=== PATIENT | male | born 1975 | race Caucasian/White ===

== ENCOUNTER 2020-12-02 10:00 | Emergency (ER) | payer OTHER, SELFPAY ==
[2020-12-02 10:00] VITALS: BP 148/95; PULSE 62; RESP 18; TEMP 36.1; O2SAT 99; BMI 33.0
--- NOTE | 2020-12-02 10:17 | CT_ITS ---
STUDY: CT ABDOMEN AND PELVIS WITHOUT CONTRAST REASON FOR EXAM: Male, 45 years old. Right-sided pain. History of kidney stones. RADIATION DOSAGE (If Supplied By Facility): CTDIvol = ( 11.06 ) mGy, DLP = ( 616.07 ) mGycm TECHNIQUE: Transaxial images were obtained from the dome of the diaphragm to the symphysis pubis without oral contrast, and without intravenous contrast. Sagittal and coronal images were reconstructed. Individualized dose optimization techniques were used for this CT. COMPARISON: None. FINDINGS: Evaluation of the abdominal viscera is limited in the absence of intravenous contrast. The visualized lung bases are clear. The visualized portions of the heart and pericardium are within normal limits. There are no calcified gallstones present. The liver demonstrates an unremarkable unenhanced appearance. The spleen is normal in size. The pancreas demonstrates an unremarkable unenhanced appearance. The adrenal glands are within normal limits. There is a 5 mm stone in the right mid ureter with mild right hydronephrosis. There are bilateral subcentimeter nonobstructing renal collecting system stones, measuring up to 4 mm. There are no left ureteral stones. There is no hydronephrosis. Normal visualized stomach. There is no bowel obstruction or inflammation. The appendix is visualized and appears normal. The aorta is normal in caliber. There is no abdominal or pelvic free air, free fluid, fluid collection or lymphadenopathy. There are no destructive osseous lesions. CT/Abdomen/Pelvis without Cont IMPRESSION: 5 mm stone in the right mid ureter with mild right hydroureteronephrosis. Bilateral subcentimeter nonobstructing renal collecting system stones. No left ureteral stones. No left hydronephrosis. No bowel obstruction or inflammation. Normal appendix. Electronically Signed: Seth Pringle MD at 11:29 EDT Tel , Service support ,
--- NOTE | 2020-12-02 10:19 | ED.VIS.GEN ---
History of Present Illness Chief Complaint: Flank Pain Informant: Patient Onset: Today Context: Sudden Onset Current Severity: Severe Maximum Severity: Severe Narrative: Patient presents with severe right flank pain with rather sudden onset 1 hour prior to arrival. Patient does have a history of kidney stones and states this does feel similar. He tried taking naproxen and hydrocodone at home but has had no relief in pain. He believes he has noted some blood in his urine recently. He has had kidney stones in the past but is always been able to pass them. He has had nausea and vomiting today secondary to pain. - Past Medical History (1) Kidney stones Status: Chronic Past Medical History Primary Care Physician: [facility],[place] [Primary Care Provider] - Prior records reviewed: Yes Lives: Spouse/ Significant Other Smoking Status: Never smoker Review of Systems General: Denies: Chills, Fever Eyes: Denies: Visual changes - bilaterally ENT: Denies: Bilateral ear pain Cardiovascular: Denies: Chest pain Respiratory: Denies: Dyspnea, Cough Gastrointestinal: Reports: Abdominal pain - Right flank, Nausea, Vomiting Musculoskeletal: Reports: Back pain - Right flank Skin: Denies: Rash Neurological: Denies: Headache Hematologic: Denies: Easy bruising, Easy bleeding Allergy: Denies: Uticaria Physical Exam Vital Signs/Narrative: Vital Signs Temp Pulse Resp BP Pulse Ox 12/02/20 10:00 96.9 F L 62 18 148/95 H 99 Inital Vital Signs reviewed: Yes General: Well nourished, Well developed Head: Normocephalic ENT: Moist mucous membranes Neck: Supple Cardiovascular: Regular rate, Regular rhythm Respiratory: No distress, CTA bilaterally Abdomen: Soft Back: CVA tenderness Neurological: Alert, Oriented x3 Psychological: - - Anxious Diagnostic/Tx/Re-eval Impressions Abdomen/Pelvis CT 12/02/20 10:17 IMPRESSION: 5 mm stone in the right mid ureter with mild right hydroureteronephrosis. Bilateral subcentimeter nonobstructing renal collecting system stones. No left ureteral stones. No left hydronephrosis. No bowel obstruction or inflammation. Normal appendix. Electronically Signed: Seth Pringle MD at 11:29 EDT Tel , Service support , 12/02/20 10:17 Abdomen/Pelvis without Cont [CT] Stat Laboratory Results 12/02/20 12/02/20 12/02/20 10:05 10:05 10:45 WBC 6.8 RBC 5.56 Hgb 16.3 Hct 47.8 MCV 86.0 MCH 29.3 MCHC 34.1 RDW Std Deviation 39.1 RDW Coeff of Giovani 12.4 Plt Count 254 MPV 9.9 Immature Gran % (Auto) 0.100 Neut % (Auto) 67.6 Lymph % (Auto) 23.3 [place] % (Auto) 7.2 Eos % (Auto) 1.2 Baso % (Auto) 0.6 Absolute Neuts (auto) 4.6 Absolute Lymphs (auto) 1.58 Nucleated RBC % 0 Sodium 137 Potassium 4.0 Chloride 106 Carbon Dioxide 23.0 Anion Gap 8 BUN 14 Creatinine 1.12 Estim Creat Clear Calc 87.81 Est GFR (MDRD) Af Amer 92 Est GFR (MDRD) Non-Af 76 BUN/Creatinine Ratio 12.5 Glucose 122 H Calcium 9.3 Urine Color [place] Urine Clarity Cloudy Urine pH 5.0 Ur Specific [place] 1.025 Urine Protein 100 H Urine Glucose (UA) Normal Urine Ketones 5 H Urine Occult Blood 250 H Urine Nitrite Positive H Urine Bilirubin Negative Urine Urobilinogen 1 H Ur Leukocyte Esterase 25 H Urine RBC > 100 SEEN Urine WBC 0-5 SEEN Ur Squamous Epith Cells 0 SEEN Urine Bacteria 0 SEEN Urine Mucus 0 SEEN - Medical Decision Making Patient was given morphine, Zofran, Toradol, and IV fluids. On repeat evaluation patient is resting much more comfortably. Blood work is largely unremarkable. Renal function is normal. Urinalysis does show blood but [address] flank reveals a 5 mm stone in the right mid to proximal ureter. Mild hydronephrosis is noted. Test results discussed with patient and at bedside. He would prefer to try to go home with pain medication if possible. He will be written for Percocet, Toradol, Zofran, and Flomax. He is given return instructions. [facility] and may follow-up with the [place] urologist, however he will also be given Dr. Gunn's information if he is able to follow-up locally. ED Disposition - Plan for ED Patient: Disposition: Home or Assisted Living Diagnosis: Kidney stone on right side Instructions: ED Kidney Stone w/ Colic Prescriptions: Tamsulosin HCl [Flomax] 0.4 mg PO DAILY #7 capsule Transmission Status: Pending to [id number] Oxycodone HCl/Acetaminophen [Percocet 5/325] 1 tablet PO Q6H PRN PRN 3 Days #12 tablet PRN Reason: Pain Transmission Status: Received by [id number] Ketorolac [Toradol] 10 mg PO Q6H PRN #14 tab PRN Reason: Pain Score 4-10 Transmission Status: [facility] [address] Ondansetron [Zofran Odt] 4 mg PO Q8H PRN PRN #10 tablet PRN Reason: Nausea Transmission Status: P[facility] to [facility] [address] Referrals: [facility],[place] [Primary Care Provider] - Naldo Gunn MD [STAFF PHYSICIAN] - 3-5 Days if not improving
[2020-12-02] MEDS: Ketorolac 30 MG/ML Syringe IV (10:27)
[2020-12-02] MEDS: Morphine 4 MG/ML Syringe IV ×2 (10:27→12:14)
[2020-12-02] MEDS: 0.9% Normal Saline 1,000 ML 250 ML IV (10:28)
[2020-12-02] MEDS: Ondansetron 4 MG/2 ML Vial IV (10:28)
[2020-12-02 10:53] LABS: Bacteria 0 SEEN /hpf (None Seen); Mucous, Urine 0 SEEN /hpf (<or=2+); Squamous Epithelial Cells - UA 0 SEEN /hpf (0-5)
[2020-12-02 10:56] LABS: Color, Urine Amber (Yellow); Glucose, Dipstick Normal (Normal); Ketone-Dipstick 5 mg/dl (Negative); Leukocyte Esterase-Dipstick 25 /ul (Negative); Nitrite-Dipstick Positive (Negative); Occult Blood-Urine 250 /ul (Negative); Protein-Dipstick 100 mg/dl (Negative); Specific Gravity, Urine 1.025 (1.002-1.030); Urine Bilirubin Dipstick Negative (Negative); Urine Clarity Cloudy (Clear); Urine Urobilinogen 1 mg/dl (Normal)
[2020-12-02 11:09] LABS: Red Blood Cells-Urine > 100 SEEN /hpf (0-5)
[2020-12-02 11:11] LABS: White Blood Cells 0-5 SEEN /hpf (0-5)
[2020-12-02 11:39] LABS: Absolute Lymphocyte Count 1.58 X10^3/uL (0.83-4.51); Absolute Neutrophil Count 4.6 X10^3/uL (2.0-7.7); Basophil# 0.04 X10^3/uL; Basophil% 0.6 % (0-1); Eosinophil# 0.08 X10^3/uL; Eosinophils% 1.2 % (0-5); Hematocrit 47.8 % (40-54); Hemoglobin 16.3 g/dL (13.0-16.5); Lymphocyte # 1.58 X10^3/ul (4.0); Lymphocyte % 23.3 % (19-41); Mean Corp Hgb Conc 34.1 g/dL (32-36); Mean Corpuscular Hgb 29.3 pg (27.0-32.0); Mean Platelet Vol. 9.9 fl (6.2-12.0); Monocyte# 0.49 X10^3/uL; Monocyte% 7.2 % (0-10); NRBC Flagged by Analyzer 0 % (0-5); Neutrophil # 4.58 X10^3/uL (2.7-7.7); Neutrophil % 67.6 % (47-70); Platelet Count 254 K/mm3 (150-450); RBC Distribution Width CV 12.4 % (11.6-14.6); RBC Distribution Width SD 39.1 fl (35.1-43.9); Red Blood Count 5.56 M/mm3 (4.6-6.2); White Blood Count 6.8 K/mm3 (4.4-11.0)
[2020-12-02 11:50] LABS: Anion Gap 8 (5-15); BUN 14 mg/dL (7-18); BUN/Creat Ratio 12.5 RATIO (10-20); Calcium,Total 9.3 mg/dL (8.5-10.1); Chloride 106 mmol/L (98-107); Creatinine, Serum 1.12 mg/dL (0.70-1.30); EST Glomerular Filtration Rate 76 mL/min (>60); Est Glom Filt Rate - Afr Amer 92 mL/min (>60); Estimated Creatinine Clearance 87.81 ml/min; Glucose 122 mg/dL (74-106); Sodium Level 137 mmol/L (136-145)
[2020-12-02 12:03] VITALS: BP 147/90; PULSE 68; RESP 16; O2SAT 99
== END 2020-12-02 12:19 | disposition home or self-care (01) ==
PROVIDERS: Emergency Provider Emergency Medicine
DX: N13.2 Hydronephrosis with renal and ureteral calculous obstruction (principal); Z87.442 Personal history of urinary calculi
CPT/HCPCS: 74176; 80048; 81001; 85025; 96361; 96374; 96375; 96376; 99284; J2405